=== PATIENT | female | born 1935 | race Caucasian/White ===

== ENCOUNTER 2017-03-05 23:24 | Emergency (ER) | payer OTHER ==
[~2017-03-05] VITALS: Ht 142.2 cm; Wt 56.2 kg
[2017-03-05 23:26] VITALS: Ht 142.2 cm; Wt 56.2 kg
[2017-03-06 03:10] VITALS: BP 161/62
== END 2017-03-06 03:10 | disposition short-term general hospital (02) ==
LOC: ED 23:24
DX: I10 Essential (primary) hypertension (principal); F33.1 Major depressive disorder, recurrent, moderate; F03.90 Unspecified dementia, unspecified severity, without behavioral disturbance, psychotic disturbance, mood disturbance, and anxiety; Z88.6 Allergy status to analgesic agent